=== PATIENT | female | born 1960 | race African-American/Black ===

== ENCOUNTER 2017-03-30 07:41 | Outpatient (CLI) | payer OTHER ==
--- NOTE | 2017-03-30 09:52 | CT ---
CT BRAIN WITHOUT CONTRAST: HISTORY: Right eye infect, unable to see with headaches. Pain around the right eye. COMPARISON: None. FINDINGS: No acute territorial infarct or hemorrhage. No midline shift or mass effect. Ventricular size and extraaxial CSF spaces are normal. Calvarium is intact. Paranasal sinuses and mastoids are clear. IMPRESSION: No acute intracranial abnormality. POS: [facility]
--- NOTE | 2017-03-30 09:56 | CT ---
CT PARANASAL SINUSES NONCONTRAST: History: 56-year-old female with right retrobulbar headache. FINDINGS: The frontal, ethmoid, sphenoid, and maxillary sinuses are clear. The visualized anterior portions of the mastoid air cells and middle ear cavities, included in the field of view, are grossly clear. Th e extraocular muscles are bilaterally symmetrical and normal in thickness. No intraorbital edema, ga s, or mass. Ostiomeatal units patent and clear. Nasal cavity is patent and clear. No osseous dehisce nse. IMPRESSION: Normal. POS: [facility]
--- NOTE | 2017-03-30 12:22 | CT ---
CT OF ORBITS PERFORMED WITHOUT CONTRAST ENHANCEMENT: History: Right sided orbital pain. History of a right eye infection. FINDINGS: Visualized brain parenchyma is unremarkable. The sinuses are clear. The lack of IV contrast preclude s evaluation for any subtle enhancement. I see no intra or extra ----- mass or any inflammatory proc ess. Lacrimal glands are symmetric in size and appearance. IMPRESSION: Unremarkable orbits. POS: [facility]
== END 2017-03-30 07:42 | disposition home or self-care (01) ==
LOC: CT 07:41
PROVIDERS: ATTEND Internal Medicine
DX: G43.909 Migraine, unspecified, not intractable, without status migrainosus (principal)
CPT/HCPCS: 70450; 70480

== ENCOUNTER 2017-10-11 13:34 | Outpatient (CLI) | payer OTHER | END 2017-10-11 13:35 | disposition home or self-care (01) | LOC: BICMAMMO 13:34 | PROVIDERS: ATTEND Internal Medicine | DX: Z12.31 Encounter for screening mammogram for malignant neoplasm of breast (principal) | CPT/HCPCS: 77063; 77067 ==

== ENCOUNTER 2018-01-28 22:52 | Observation (INO) | payer OTHER ==
--- NOTE | 2018-01-28 23:54 | RAD ---
PA AND LATERAL CHEST: 01/28/18 HISTORY: Mid sternal chest pain, left arm numbness. Heart size and mediastinum are within normal limits. The lungs are clear of infiltrates. No acute bon y findings. IMPRESSION: No active intrathoracic disease. POS: [facility]
[2018-01-28 23:57] LABS: #Eosinphils 0.2 thou/uL (0.0-0.7); #Lymphocytes 2.2 thou/uL (1.20-3.40); #Monocytes 0.3 thou/uL (0.11-0.59); #Neutrophils 2.1 thou/uL (1.40-6.50); %Basophils 0.7 % (0.0-1.0); %Eosinophils 4.9 % (0.0-10.0); %Lymphocytes 44.8 % (21.0-51.0); %Monocytes 6.5 % (0.0-10.0); Hemoglobin 13.2 g/dL (12.0-16.0); Mean Corpuscular Volume 88.1 fL (78.0-98.0); Mean Platelet Volume 7.7 fL (7.4-10.4); Platelet Count 162 thou/uL (130-400); Red Blood Cell (RBC) Count 4.41 mill/uL (4.20-5.40); White Blood Cell (WBC) Count 4.9 thou/uL (4.8-10.8)
[2018-01-29 00:18] LABS: ALT (SGPT) 13 U/L (8-55); AST (SGOT) 16 U/L (5-34); Albumin 4.4 g/dL (3.5-5.0); Alkaline Phosphatase 53 U/L (40-150); Anion Gap 13 mmol/L (10-20); BUN (Urea Nitrogen) 10 mg/dL (9.8-20.1); Bilirubin, Total 0.7 mg/dL (0.2-1.2); CK (CPK) 91 U/L (29-168); Calc. Creatinine Clearance 0 mL/min (70-130); Calcium 9.8 mg/dL (7.8-10.44); Carbon Dioxide 28 mmol/L (22-29); Chloride 102 mmol/L (98-107); Estimated GFR-MDRD 89; Globulin 3.4 g/dL (2.4-3.5); Glucose 110 mg/dL (70-105); Potassium 3.5 mmol/L (3.5-5.1); Protein, Total 7.8 g/dL (6.0-8.3); Sodium 139 mmol/L (136-145)
[2018-01-29 00:22] LABS: CKMB 0.8 ng/mL (0-6.6); Troponin I Less than 0.010 ng/mL (< 0.028)
[2018-01-29] MEDS ORDERED: traMADol HCl 50 MG TAB PO PRN (03:18)
[2018-01-29] MEDS ORDERED: Mag-Al 1200 mg/1200 mg/30 ML UDCUP PO PRN (03:18)
[2018-01-29] MEDS ORDERED: cloNIDine 0.1 MG TAB PO PRN (03:18)
[2018-01-29] MEDS ORDERED: Calcium Carbonate 500 MG ChewTAB PO PRN (03:18)
[2018-01-29] MEDS ORDERED: Lorazepam 1 MG TAB PO PRN (03:18)
[2018-01-29] MEDS ORDERED: Loratadine 10 MG TAB PO PRN (03:18)
[2018-01-29] MEDS ORDERED: Benzonatate 100 MG CAP PO PRN (03:18)
[2018-01-29] MEDS ORDERED: Bisacodyl 5 MG TAB PO PRN (03:18)
[2018-01-29] MEDS ORDERED: Acetaminophen 325 MG TAB PO PRN (03:18)
[2018-01-29] MEDS ORDERED: HYDROcodone/Acetaminophen 5/325 mg Tablet PO PRN (03:18)
[2018-01-29] MEDS ORDERED: Nitroglycerin 0.4 MG TAB (25 Tab Bottle) SL PRN (03:18)
[2018-01-29] MEDS ORDERED: Diabetic Tussin 200 MG/10 ML UDCUP PO PRN (03:18)
[2018-01-29] MEDS ORDERED: Senokot 8.6 MG TAB PO PRN (03:18)
[2018-01-29] MEDS ORDERED: hydrALAZINE 20 MG/ML VIAL SLOW IVP PRN (03:18)
[2018-01-29] MEDS ORDERED: Ondansetron HCl/PF 4 MG/2 ML Vial IVP PRN (03:18)
--- NOTE | 2018-01-29 04:27 | HP ---
PRIMARY CARE PHYSICIAN: Tiff Cano M.D. CHIEF COMPLAINT: Chest pain. HISTORY OF PRESENT ILLNESS: Ms. 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 History is mainly obtained by the patient herself and electronic medical records have been reviewed. Case has been discussed wi th the admitting ER physician, Dr. Tatum. According to Ms. Chaudhari, she was doing her work shift today when all of a sudden she started to have s harp chest pain located in the center of the chest going down her arm. It was associated with some d izziness, nausea, and shortness of breath. She later started to feel that her left leg is also tingl y. Her coworkers took a blood pressure and her systolic blood pressure was in the 140s. Normally, h er blood pressure runs in the 100s. She presented to the ER with these symptoms and underwent a ches t x-ray which was unremarkable. Her blood work was unremarkable as well as D-dimer was negative. Ca rdiac enzymes negative. EKG normal. She reports that she had a stress test done with Dr. Valencia 5 years ago which was normal. She does n ot have any history of tobacco abuse, but does have a very significant family history of cardiac dise ase and stroke. Two of her brothers in their 50s one from heart attack and one from stroke. He r mother of a massive heart attack in her 70s. She is hemodynamically stable and is now being a dmitted for further workup and rule out acute coronary syndrome. PAST MEDICAL HISTORY: None really. PAST SURGICAL HISTORY: Cholecystectomy, hysterectomy, and tubal ligation. PSYCHIATRIC HISTORY: No anxiety, no depression. SOCIAL HISTORY: No history of drug, tobacco or alcohol abuse. FAMILY HISTORY: As per the HPI, significant family history of coronary artery disease including two brothers passing in their 50s of stroke and heart attack and her mother dying in her 70s with a massi ve heart attack. ALLERGIES: No known medication allergies. CURRENT MEDICATIONS: None. REVIEW OF SYSTEMS: A 12-point review of systems is done and it is negative except for those in histo ry and physical. LABORATORY DATA: CBC, CMP unremarkable. Blood sugar 110, CK-MB normal. Cardiac enzymes, troponin l ess than 0.010. Lipase normal. D-dimer less than 0.27. Chest x-ray by my review has no evidence to suggest any acute infiltrate or edema. A 12-lead EKG by my review shows normal sinus rhythm without any acute ST or T-wave changes. PHYSICAL EXAMINATION: VITAL SIGNS: Respirations 19, saturating 99% on room air, blood pressure 121/72, heart rate 87. GENERAL: No acute distress, but she does appear somewhat anxious and high strung, very pleasant, emily ke, alert, oriented x3. HEENT: Mucous membrane is moist and pink. No oropharyngeal exudate or erythema. Head is normocepha lic, atraumatic. Pupils are equal, reactive to light and accommodation. Extraocular movements are i ntact. NECK: Supple without any lymphadenopathy, JVD or bruit. CHEST: Clear to auscultation without any wheezing, rales or rhonchi. Rate and rhythm is regular wit hout any murmur, rubs or gallops. ABDOMEN: Soft, nontender, nondistended with positive bowel sounds. EXTREMITIES: Free of any cyanosis, clubbing, or edema. NEUROLOGIC: Nonfocal. SKIN: Free of any rashes or bruises. I feel warm and dry to touch. PSYCHIATRIC: Normal affect. IMPRESSION AND PLAN: 1. Chest pain. The patient has received aspirin in the emergency room, and we will continue that on a daily basis. We will risk stratify her with a nuclear medicine stress test given her significant family history of coronary artery disease and stroke. She will be admitted to telemetry unit under o bservation status. Continue symptomatic and supportive care. Further management will depend upon he r clinical course. Her lipid panel was reviewed that was done earlier this year in 10/2017. Her LDL was 152. Her triglycerides were normal. Her total cholesterol was slightly elevated to 237, HDL wa s 71. She will be started on a heart healthy diet. 2. Code status: FULL CODE. 3. Deep venous thrombosis and gastrointestinal prophylaxis. 4. Add p.r.n. medication orders. DISPOSITION: Ms. Chaudhari is currently being admitted for further workup of chest pain and rule out acu te coronary syndrome. Estimated length of stay at this time is less than 2 midnights. Further manag ement will depend upon her clinical course.
[2018-01-29] MEDS ORDERED: Famotidine 20 MG TAB PO SCH (09:00)
[2018-01-29] MEDS ORDERED: Enoxaparin Sodium 40 MG/0.4 ML SYRINGE SC SCH (09:00)
[2018-01-29 10:29] LABS: Troponin I Less than 0.010 ng/mL (< 0.028)
[2018-01-29] MEDS ORDERED: ADENOSINE 60 MG/20 ML VIAL ONE (11:07)
--- NOTE | 2018-01-29 11:15 | PDOC.PN ---
- Subjective Encounter Start Date: 01/29/18 Encounter Start Time: 11:14 Ms. Chaudhari was seen today in follow-up of chest pain. She says she is feeling fine now. She denies any chest pain, or feeling dizzy or lightheaded. - Objective MAR Reviewed: Yes Result Diagrams: 01/28/18 23:38 01/28/18 23:38 Phys Exam - Physical Examination HEENT: PERRLA Respiratory: no wheezing, no rales, no rhonchi, clear to auscultation bilateral Cardiovascular: RRR, no significant murmur, no rub Gastrointestinal: soft, non-tender, positive bowel sounds Musculoskeletal: no edema Neurological: non-focal, moves all 4 limbs Dx/Plan (1) Chest pain Code(s): R07.9 - CHEST PAIN, UNSPECIFIED Status: Acute - Plan * Chest pain- await stress test results * If negative then she can be discharged home..
[2018-01-29 11:47] VITALS: BMI 24.5
[2018-01-29 15:36] VITALS: TEMP 97.6
[2018-01-29 15:49] VITALS: BP 103/64
--- NOTE | 2018-01-29 16:54 | NM ---
MYOCARDIOPERFUSION SCAN WITH SPECT IMAGING: History: Chest pain. Examination was performed using 29 mCi Technetium 99M Sestamibi on the stress and 10.5 mCi Technetium 99M Sestamibi on the restenting images. FINDINGS: There is a fairly normal distribution of the radiopharmaceutical. No signs of ischemia or scar. Wall motion: There is symmetric contractility to the ventricles. LVEF: The calculated left ventricular ejection fraction is 57%. IMPRESSION: Unremarkable myocardial perfusion scan. POS: [facility]
[2018-01-29 18:05] LABS: Troponin I Less than 0.010 ng/mL (< 0.028)
--- NOTE | 2018-01-30 02:35 | DIS ---
DATE OF ADMISSION: 01/29/2018 DATE OF DISCHARGE: 01/29/2018 PRIMARY CARE PHYSICIAN: Tiff Cano MD DISCHARGE DISPOSITION: Home. DISCHARGE DIAGNOSIS: Chest pain, probable noncardiac. DISCHARGE MEDICATIONS: The same as that on admission include multivitamin once daily and omega 3 fis h oil 1000 mg daily. CODE STATUS: FULL CODE. ALLERGIES: No known drug allergies. PROCEDURES: The patient had a nuclear stress test, which was negative. HOSPITAL COURSE: Ms. Chaudhari is a very pleasant 57-year-old female who presented to the emergency room after having an episode of chest tightness as well and says feeling dizzy and lightheaded. The full details of which are outlined in the note by Dr. Torres. She was placed in observation. She was r uled out and a nuclear stress test was obtained. The results of which were negative. It was noted t hat she had a very rapid heart rate induced while she was on the stress test. I explained these resu lts to the patient and suggested that she follow up with her primary care physician and consider an o utpatient cardiology evaluation, however, heart rates. Her blood pressure was low during the stay. Her resting heart rate was normal and as such she will be discharged home with close followup.
== END 2018-01-29 18:18 | disposition home or self-care (01) ==
LOC: ERS 22:52 → ERHOLD 01-29 03:27 → 2SW 01-29 11:14
PROVIDERS: ADMIT Internal Medicine; ATTEND Internal Medicine
DX: R07.2 Precordial pain (principal)
CPT/HCPCS: 36415; 71046; 78452; 80053; 82553; 83690; 84484; 85025; 85379; 93005; 93017; 94760; A9500; G0378; J0153

== ENCOUNTER 2018-10-06 09:25 | Outpatient (CLI) | payer OTHER ==
--- NOTE | 2018-10-06 09:56 | BD ---
FEXAM: DEXA bone density examination HISTORY: 57-year-old postmenopausal female for screening COMPARISON: None FINDINGS: L1--bone mineral density 0.867 g/sq cm; T score -1.1 L2--bone mineral density 1.007 g/sq cm; T score -0.2 L3--bone mineral density 1.002 g/sq cm; T score -0.7 L4--bone mineral density 0.989 g/sq cm; T score -0.7 Total L1-L4--bone mineral density 0.965 g/sq cm; T score -0.7 Left femoral neck--bone mineral density0.774; T score -0.7 Total proximal left femur--bone mineral density 1.052; T score +0.9 IMPRESSION: Normal bone mineral density left femoral neck and lumbar spine.
--- NOTE | 2018-10-06 10:51 | MMO ---
Bilateral MAMMO Bilat Screen [facility]. CLINICAL HISTORY: Patient is 57 years old and is seen for screening. The patient has no family history of breast cancer. The patient has no personal history of cancer. VIEWS: The views performed were: bilateral craniocaudal with tomosynthesis and bilateral mediolateral oblique with tomosynthesis. FILMS COMPARED: The present examination has been compared to prior imaging studies performed at [facility] on 02/05/2005, 02/11/2005, 03/03/2006, 08/25/2007, 10/10/2008 and 10/11/2017, and at [facility] on 03/28/1997, 04/19/2012, 08/07/2013, 10/11/2014 and 12/02/2015. MAMMOGRAM FINDINGS: The breasts are heterogeneously dense, which could obscure a lesion on mammography. There are stable benign appearing calcifications seen in both breasts. There are no suspicious masses, suspicious calcifications, or new areas of architectural distortion. IMPRESSION: THERE IS NO MAMMOGRAPHIC EVIDENCE OF MALIGNANCY. A ROUTINE FOLLOW-UP MAMMOGRAM IN 1 YEAR IS RECOMMENDED. THE RESULTS OF THIS EXAM WERE SENT TO THE PATIENT. ACR BI-RADS Category 2 - Benign finding MAMMOGRAPHY NOTE: 1. A negative mammogram report should not delay a biopsy if a dominant of clinically suspicious mass is present. 2. Approximately 10% to 15% of breast cancers are not detected by mammography. 3. Adenosis and dense breasts may obscure an underlying neoplasm.
== END 2018-10-06 09:26 | disposition home or self-care (01) ==
LOC: BICMAMMO 09:25
PROVIDERS: ATTEND Internal Medicine
DX: Z12.31 Encounter for screening mammogram for malignant neoplasm of breast (principal); M81.0 Age-related osteoporosis without current pathological fracture
CPT/HCPCS: 77063; 77067; 77080

== ENCOUNTER 2018-11-01 09:44 | Outpatient (CLI) | payer OTHER ==
--- NOTE | 2018-11-01 11:21 | ULT ---
Abdominal ultrasound: 11/01/2018 COMPARISON: None HISTORY: Right-sided flank pain, history of cholecystectomy TECHNIQUE: Multiplanar grayscale sonographic imaging of the abdomen obtained. FINDINGS: Imaged IVC and aorta appear grossly unremarkable. Distal abdominal aorta is obscured by bow el gas. Gallbladder surgically absent. Common bile duct measures 3 mm, within normal limits. Urinary bladder grossly unremarkable, with a volume of 7 cm. No focal liver lesion or intrahepatic biliary dilatation. The right kidney measures 9.5 cm in craniocaudal dimension and demonstrates no evidence for stone, hy dronephrosis, or mass lesion. Left kidney measures 9.9 cm in craniocaudal dimension and demonstrates no evidence for stone, hydronephrosis, or mass lesion. Spleen measures up to 8.3 cm, within normal limits. IMPRESSION: No acute findings.
--- NOTE | 2018-11-01 11:21 | ULT ---
Urinary bladder ultrasound: 11/01/2018 HISTORY: Pain FINDINGS: Focused ultrasound of the urinary bladder is grossly unremarkable, with a volume of 7 cc. IMPRESSION: Urinary bladder is nearly empty and not optimally assessed, grossly unremarkable on this exam.
== END 2018-11-01 09:45 | disposition home or self-care (01) ==
LOC: SCSULT 09:44
PROVIDERS: ATTEND Internal Medicine
DX: R10.9 Unspecified abdominal pain (principal)
CPT/HCPCS: 76700; 76856

== ENCOUNTER 2019-11-21 14:40 | Outpatient (CLI) | payer OTHER ==
--- NOTE | 2019-11-21 15:25 | ULT ---
VENOUS DOPPLER ULTRASOUND OF THE LEFT LOWER EXTREMITY: HISTORY: Left leg pain. TECHNIQUE: Cordova scale ultrasound with color flow and spectral Doppler imaging of the deep venous system of the l eft lower extremity was performed. FINDINGS: There is good flow, compression, and augmentation noted in the left common femoral, femoral, deep fem oral, popliteal, posterior tibial, and greater saphenous veins. IMPRESSION: No evidence of deep vein thrombosis in the left lower extremity. POS: [facility]
== END 2019-11-21 14:41 | disposition home or self-care (01) ==
LOC: ULT 14:40 → BICULT 14:41
PROVIDERS: ATTEND Nurse Practitioner Family
DX: M79.605 Pain in left leg (principal)

== ENCOUNTER 2019-11-30 10:00 | Outpatient (CLI) | payer OTHER ==
--- NOTE | 2019-11-30 11:21 | MMO ---
Bilateral MAMMO Bilat Screen [facility]. CLINICAL HISTORY: Patient is 59 years old and is seen for screening. The patient has no family history of breast cancer. The patient has no personal history of cancer. VIEWS: The views performed were: bilateral craniocaudal with tomosynthesis and bilateral mediolateral oblique with tomosynthesis. FILMS COMPARED: The present examination has been compared to prior imaging studies performed at [facility] on 10/11/2017 and 10/06/2018, and at [facility] on 10/11/2014 and 12/02/2015. This study has been interpreted with the assistance of computer-aided detection. MAMMOGRAM FINDINGS: The breasts are heterogeneously dense, which could obscure a lesion on mammography. There are stable benign appearing calcifications seen in both breasts. There are no suspicious masses, suspicious calcifications, or new areas of architectural distortion. IMPRESSION: THERE IS NO MAMMOGRAPHIC EVIDENCE OF MALIGNANCY. A ROUTINE FOLLOW-UP MAMMOGRAM IN 1 YEAR IS RECOMMENDED. THE RESULTS OF THIS EXAM WERE SENT TO THE PATIENT. ACR BI-RADS Category 2 - Benign finding MAMMOGRAPHY NOTE: 1. A negative mammogram report should not delay a biopsy if a dominant of clinically suspicious mass is present. 2. Approximately 10% to 15% of breast cancers are not detected by mammography. 3. Adenosis and dense breasts may obscure an underlying neoplasm. Reported by: NORA RITTER MD Electonically Signed: [id number]
== END 2019-11-30 10:01 | disposition home or self-care (01) ==
LOC: BICMAMMO 10:00
PROVIDERS: ATTEND Internal Medicine
DX: Z12.31 Encounter for screening mammogram for malignant neoplasm of breast (principal)
CPT/HCPCS: 77063; 77067

== ENCOUNTER 2020-09-26 15:17 | Outpatient (CLI) | payer OTHER | END 2020-09-26 15:18 | disposition home or self-care (01) | LOC: SCSRAD 15:17 | PROVIDERS: ATTEND Family Medicine | DX: J18.9 Pneumonia, unspecified organism (principal); R91.8 Other nonspecific abnormal finding of lung field | CPT/HCPCS: 71046 ==

== ENCOUNTER 2020-12-12 08:09 | Outpatient (CLI) | payer OTHER | END 2020-12-12 08:10 | disposition home or self-care (01) | LOC: BICMAMMO 08:09 | PROVIDERS: ATTEND Internal Medicine | DX: Z12.31 Encounter for screening mammogram for malignant neoplasm of breast (principal) | CPT/HCPCS: 77063; 77067 ==

== ENCOUNTER 2021-02-06 14:55 | Outpatient (CLI) | payer OTHER | END 2021-02-06 14:56 | disposition home or self-care (01) | LOC: BICRAD 14:55 | PROVIDERS: ATTEND Internal Medicine | DX: R22.41 Localized swelling, mass and lump, right lower limb (principal) ==

== ENCOUNTER 2021-03-27 08:13 | Outpatient (CLI) | payer OTHER | END 2021-03-27 08:14 | disposition home or self-care (01) | LOC: BICMRI 08:13 | PROVIDERS: ATTEND Orthopaedic Surgery | DX: M23.306 Other meniscus derangements, unspecified meniscus, right knee (principal); M23.91 Unspecified internal derangement of right knee; M25.461 Effusion, right knee ==

== ENCOUNTER 2021-04-10 09:41 | Outpatient (CLI) | payer OTHER | END 2021-04-10 09:42 | disposition home or self-care (01) | LOC: NM 09:41 | PROVIDERS: ATTEND Orthopaedic Surgery | DX: M23.306 Other meniscus derangements, unspecified meniscus, right knee (principal); M25.461 Effusion, right knee; R22.41 Localized swelling, mass and lump, right lower limb | CPT/HCPCS: 78315; A9503 ==

== ENCOUNTER 2023-12-23 13:46 | Outpatient (CLI) | payer BC | END 2023-12-23 13:47 | disposition home or self-care (01) | LOC: BICMAMMO 13:46 | PROVIDERS: ATTEND Obstetrics & Gynecology | DX: Z12.31 Encounter for screening mammogram for malignant neoplasm of breast (principal); Z80.3 Family history of malignant neoplasm of breast | CPT/HCPCS: 77063; 77067 ==

== ENCOUNTER 2025-03-11 15:04 | Outpatient (CLI) | payer BC | END 2025-03-11 15:05 | disposition home or self-care (01) | LOC: BICRAD 15:04 | PROVIDERS: ATTEND Internal Medicine | DX: M25.551 Pain in right hip (principal) ==